=== PATIENT | female | born 2000 | race African-American/Black ===

== ENCOUNTER 2022-05-27 21:32 | Inpatient (IN) ==
[2022-05-27 22:12] LABS: Bacteria,Urine Occasional /HPF (Few); Hyaline Casts,Urine 2 /LPF (0-3); Mucus,Urine Many /LPF (Occasional); Squamous Epithelial Cell,Urine Occasional /HPF (0-10); Urine Appearance Clear (Clear); Urine Color Yellow (Yellow); Urine Specific Gravity >= 1.030 (1.001-1.035)
[2022-05-27 22:13] LABS: Bilirubin,Urine Negative (Negative); Blood, Urine Negative (Negative); Glucose,Urine (UA) Negative (Negative); Ketones,Urine Negative (Negative); Nitrite,Urine Negative (Negative); Protein,Urine Trace mg/dL (Negative)
[2022-05-28] MEDS ORDERED: METHYLERGONOVINE 0.2 MG/1 ML AMP IM PRN (00:17)
[2022-05-28] MEDS ORDERED: CARBOPROST TROMETHAMINE 250 MCG/ML AMP IM PRN (00:17)
[2022-05-28] MEDS ORDERED: miSOPROStoL 200 MCG TABLET RECTAL PRN (00:17)
[2022-05-28] MEDS ORDERED: BUTORPHANOL 2 MG/ML VIAL IV PRN (00:17)
[2022-05-28] MEDS ORDERED: TRANEXAMIC ACID 1,000 MG in SODIUM CHLORIDE 0.9% 100 ML IV PRN (00:17)
[2022-05-28] MEDS ORDERED: OXYTOCIN/LR 20 UNIT/1,000 ML BAG IV ONE (00:30)
[2022-05-28 00:55] LABS: Basophils % 0.2 % (0.0-0.8); Eosinophils % 0.5 % (0.00-10.9); Hematocrit 31.7 VOL% (35.7-47.0); Hemoglobin 10.9 GM/DL (12.0-16.0); Immature Granulocytes % 0.7 %; Immature Granulocytes Absolute 0.06 #; Lymphocytes # 1.9 10*3/uL (1.4-4.0); Lymphocytes % 22.3 % (21.3-54.2); Mean Corpuscular HGB Conc 34.4 GM/DL (32-36); Mean Corpuscular Volume 92.7 FL (87-102); Mean Platelet Volume 12.3 FL (9.6-12.0); Monocytes # 0.6 10*3/uL (0.11-0.8); Monocytes % 6.9 % (1.7-12.7); Neutrophils % 69.4 % (38.7-73.9); Platelet Count 199 T/CUMM (130-400); Red Blood Count 3.42 MC/CUMM (3.8-5.5); Red Cell Distribution Width 13.5 % (9.3-17.3); White Blood Count 8.7 T/CUMM (4-12)
[2022-05-28 01:21] LABS: Lymphocytes 26 % (20-55); Myelocytes 1 %; Platelet Estimate Normal; Total Cells Counted 100
[2022-05-28] MEDS: LACTATED RINGERS 1,000 ML IV SCH ×3 (04:45→13:00)
[2022-05-28] MEDS ORDERED: TERBUTALINE 1 MG/1 ML VIAL ONE (04:50)
[2022-05-28] MEDS ORDERED: OXYTOCIN/LR 20 UNIT/1,000 ML BAG IV SCH (10:00)
[2022-05-28] MEDS: ONDANSETRON 4 MG/2 ML VIAL IV PRN (11:52)
[2022-05-28] MEDS: MEPERIDINE 50 MG/1 ML VIAL IV PRN (12:03)
[2022-05-29] MEDS: MEPERIDINE 50 MG/1 ML VIAL IV PRN ×3 (02:04→13:29)
[2022-05-29] MEDS: ONDANSETRON 4 MG/2 ML VIAL IV PRN ×2 (02:16→09:37)
[2022-05-29] MEDS: LACTATED RINGERS 1,000 ML IV SCH (05:14)
[2022-05-29] MEDS ORDERED: miSOPROStoL 200 MCG TABLET ONE (14:06)
[2022-05-29] MEDS ORDERED: METHYLERGONOVINE 0.2 MG/1 ML AMP ONE (14:07)
[2022-05-29] MEDS ORDERED: CARBOPROST TROMETHAMINE 250 MCG/ML AMP IM ONE (14:07)
[2022-05-29 14:52] LABS: Cord Arterial Blood HCO3 19.5 MMOL/L
[2022-05-29 14:55] LABS: Cord Venous Blood HCO3 21.6 MMOL/L; Cord Venous Blood PCO2 46.8 MMHG; Cord Venous Blood PO2 27.4
[2022-05-29] MEDS ORDERED: OXYTOCIN/LR 20 UNIT/1,000 ML BAG IV ONE ×2 (17:13→17:53)
[2022-05-29] MEDS ORDERED: DIPH/TET/ACEL PERT BOOSTER VACCINE 0.5 ML VIAL IM ONE (17:53)
[2022-05-29] MEDS ORDERED: LANOLIN 50% CREAM 0.3 OZ TUBE TOP PRN (17:53)
[2022-05-29] MEDS ORDERED: BISACODYL 10 MG SUPP RECTAL PRN (17:53)
[2022-05-29] MEDS ORDERED: WITCH HAZEL PADS 100/JAR TOP PRN (17:53)
[2022-05-29] MEDS ORDERED: HYDROCORTISONE 2.5% RECTAL CREAM 30 GM TUBE TOP PRN (17:53)
[2022-05-29] MEDS ORDERED: MEASLES/MUMPS/RUBELLA VACCINE 0.5 ML VIAL SUBCUT ONE (17:53)
[2022-05-29] MEDS ORDERED: RHO(D) IMMUNE GLOBULIN 300 MCG SYRINGE IM ONE (17:53)
[2022-05-29] MEDS ORDERED: ACETAMINOPHEN 325 MG TABLET PO PRN (17:53)
[2022-05-29] MEDS ORDERED: oxyCODONE/ACETAMINOPHEN 5-325 MG TABLET PO PRN ×2 (17:53)
[2022-05-29] MEDS ORDERED: BENZOCAINE 20%/MENTHOL 0.5% SPRAY 56 GM CAN TOP PRN (17:53)
[2022-05-29] MEDS: IBUPROFEN 800 MG TABLET PO PRN (21:05)
[2022-05-29] MEDS: DOCUSATE SODIUM 100 MG CAPSULE PO SCH (21:05)
[2022-05-30 04:56] LABS: Basophils % 0.1 % (0.0-0.8); Eosinophils % 0.2 % (0.00-10.9); Hematocrit 29.3 VOL% (35.7-47.0); Hemoglobin 9.7 GM/DL (12.0-16.0); Immature Granulocytes % 0.7 %; Immature Granulocytes Absolute 0.09 #; Lymphocytes # 2.1 10*3/uL (1.4-4.0); Lymphocytes % 15.1 % (21.3-54.2); Mean Corpuscular HGB Conc 33.1 GM/DL (32-36); Mean Corpuscular Volume 95.4 FL (87-102); Mean Platelet Volume 12.2 FL (9.6-12.0); Monocytes # 1.3 10*3/uL (0.11-0.8); Monocytes % 9.2 % (1.7-12.7); Neutrophils % 74.7 % (38.7-73.9); Platelet Count 181 T/CUMM (130-400); Red Blood Count 3.07 MC/CUMM (3.8-5.5); Red Cell Distribution Width 13.6 % (9.3-17.3); White Blood Count 13.8 T/CUMM (4-12)
[2022-05-30] MEDS: DOCUSATE SODIUM 100 MG CAPSULE PO SCH ×2 (09:45→22:00)
[2022-05-30] MEDS: IBUPROFEN 800 MG TABLET PO PRN (22:19)
[2022-05-31 07:31] VITALS: BP 121/75
[2022-05-31] MEDS: DOCUSATE SODIUM 100 MG CAPSULE PO SCH (09:09)
[2022-05-31] MEDS: IBUPROFEN 800 MG TABLET PO PRN (09:09)
== END 2022-05-31 14:20 | disposition home or self-care (01) | DRG 560 ==
LOC: N.LDOUT 21:32 → N.LD 21:35 → N.OB 05-29 17:30
PROVIDERS: ADMIT Obstetrics & Gynecology; ATTEND Obstetrics & Gynecology